=== PATIENT | male | born 1980 | race Caucasian/White ===

== ENCOUNTER 2022-02-10 09:25 | Outpatient (CLI) | payer OTHER, SELFPAY ==
--- NOTE | 2022-02-10 09:22 | DI.RAD_ITS ---
Exam(s) XR KNEE LT 3V AP,LAT,JOSE EXAM: XR KNEE LT 3V AP,LAT,JOSE CLINICAL HISTORY: LEFT KNEE PAIN. TECHNIQUE: 2D digital imaging was performed. Three views. COMPARISON: MR MR KNEE RIGHT WO CONTRAST from 06/10/2021 FINDINGS: BONES: No acute fracture is present. No bony destructive lesion is seen. JOINTS: The knee is normally aligned. No joint effusion is seen. Spurring at the articular aspect of the patella, greater inferiorly. SOFT TISSUE: Normal. IMPRESSION: Patellofemoral degenerative changes. DATA REPOSITORY: RADIATION DOSE DELIVERED:
== END 2022-02-10 09:26 | disposition home or self-care (01) ==
LOC: DIORS 09:26
PROVIDERS: PCP Family Medicine; Referring Provider Family Medicine; Visit Provider Student in an Organized Health Care Education/Training Program
DX: M25.562 Pain in left knee (principal); M25.862 Other specified joint disorders, left knee
CPT/HCPCS: 73562

== ENCOUNTER 2022-04-04 02:36 | Outpatient (CLI) | payer OTHER, SELFPAY ==
[2022-04-04 11:24] LABS: Source Nasal/Nares
[2022-04-04 19:41] LABS: COVID-19 PCR Negative (Negative)
== END 2022-04-04 02:37 | disposition home or self-care (01) ==
LOC: LBO 02:37
PROVIDERS: PCP Family Medicine; Visit Provider Student in an Organized Health Care Education/Training Program
DX: Z20.822 Contact with and (suspected) exposure to COVID-19 (principal); Z01.818 Encounter for other preprocedural examination
CPT/HCPCS: 87635

== ENCOUNTER 2022-04-05 11:18 | Day surgery (SDC) | payer OTHER, SELFPAY ==
[2022-04-05] VITALS (8 sets, daily range): BP systolic 89–115; BP diastolic 39–76; PULSE 52–72; RESP 11–17; TEMP 36.2–37; O2SAT 97–100; BMI 31.8
[2022-04-05] MEDS: Acetaminophen 500 MG TAB 1000 MG PO (11:38)
[2022-04-05] MEDS: Celecoxib 200 MG CAP 400 MG PO (11:38)
[2022-04-05] MEDS: Lactated Ringers 1,000 ML 80 ML IV (11:47)
--- NOTE | 2022-04-05 12:02 | W.ANESPRE ---
General Info Date of Service Date Performed: 04/05/22 Height: 6 ft 1 in Weight: 109.4 kg Body Mass Index (BMI): 31.8 Surgical Procedure: Operation Date: 04/05/22 15:25 Proposed Procedure Side Surgeon p Knee Diagnostic Arthroscopy Right Jarad Rollins MD Meds Allergies and Home Medications Allergies Allergy/AdvReac Type Severity Reaction Status Date / Time No Known Allergies Allergy Verified 04/05/22 11:37 Home Medication Medication Instructions Recorded Unknown [No Known Home Meds] 02/10/22 Current Visit Medications: Current Medications Generic Name Dose Route Start Last Admin Trade Name Freq PRN Reason Stop Dose Admin Acetaminophen 1,000 mg 04/05/22 06:00 04/05/22 11:38 Acetaminophen 500 Mg Tab PO 1,000 mg PREOP TAWNY Administration Celecoxib 400 mg 04/05/22 06:00 04/05/22 11:38 Celecoxib 200 Mg Cap PO 400 mg PREOP TAWNY Administration Ringer's Solution 1,000 mls @ 80 mls/hr 04/05/22 06:00 04/05/22 11:47 IV 05/04/22 23:59 80 mls/hr INFUSION TAWNY Administration Cefazolin Sodium/Dextrose 2 gm in 50 mls @ 100 mls/hr 04/05/22 06:00 Ancef Duplex IVPB 05/04/22 23:59 PREOP TAWNY IV Miscellaneous Supplies 1 each 04/05/22 06:00 Iv Access IV 05/04/22 23:59 DIRECTED TAWNY Sodium Chloride 0 ml 04/05/22 06:00 Normal Saline Flush 10 Ml Syr IV 05/04/22 23:59 PRN PRN Sodium Chloride 0 ml 04/05/22 06:00 Normal Saline 10 Ml Vial IJ 05/04/22 23:59 DIRECTED PRN Sterile Water 0 ml 04/05/22 06:00 Water,Injection,Sterile 10 Ml Vial IJ 05/04/22 23:59 DIRECTED PRN PFSH Active Problems Active Problems: Problem Status Onset Code Internal derangement of right knee M23.91 Surgical History Surgical History Hx of wisdom tooth extraction Tobacco Smoking/Tobacco Use Status: Never Alcohol Alcohol Intake: current Alcohol intake frequency: a few times a month Alcohol type: beer Substance Use Substance use: Never Substance use type: does not use Vital Signs and Lab Results Vital Signs Most Recent Vital Signs in EMR: Most Recent Vital Signs Temp Pulse Resp BP Pulse Ox 37.0 C 69 17 108/76 97 04/05/22 11:30 04/05/22 11:30 04/05/22 11:30 04/05/22 11:30 04/05/22 11:30 Lab Results Blood Type / Crossmatch: No Data to Display Complete Blood Count: No Data to Display Complete Metabolic Panel: No Data to Display Liver Function Panel: No Data to Display Coagulation Panel: No Data to Display Cardiac Panel: No Data to Display Arterial Blood Gas: No Data to Display Venous Blood Gas: No Data to Display Pancreas Panel: No Data to Display Thyroid Panel: No Data to Display Infectious Disease: Coronavirus (COVID-19)(PCR) Negative (Negative) 04/04/22 08:45 Coronavirus 2019 Source Nasal/Nares 04/04/22 08:45 Blood Cultures: No Data to Display Toxicology Panel: No Data to Display Anesthesia Assessment and Plan Anesthesia History Personal History: No History of Anesthesia Complications Family History: No Family History of Anesthesia Complications Exercise Tolerance Exercise Tolerance: Metabolic Equivalents>4 Pertinent Negatives Pertinent Negatives: No Symptoms of GERD, No Major Cardiovascular Symptoms or Complaints and No Major Pulmonary Symptoms or Complaints Cardiac & Pulmonary Exam Cardiac Exam: Normal S1/S2 Heart Sounds Pulmonary Exam: Clear Bilateral Breath Sounds Implantable Cardiac Device Does patient have a Pacemaker or an ICD?: No Airway Exam Known Difficult Airway: No Mallampati Class: 1 Mouth Opening: Normal (> 3cm) Thyromental Distance: Greater than 3 cm Neck Range of Motion: Full ROM Neck Circumference: Normal Teeth Condition: Normal Dentition ASA Classification ASA Score: ASA 1 Emergency Case?: No NPO Status NPO Status: NPO Clears >2 hours, Solids >8 hours Anesthesia Plan Resuscitation Status: Full Code Anesthesia Technique: General Anesthesia Airway Planned: LMA Monitors Used: Standard Monitors
--- NOTE | 2022-04-05 12:52 | W.PM.DSUDISC ---
Discharge Plan Disposition Patient Disposition: HOME Condition: Good Discharge Details Reason For Visit: Right knee internal derangement Attending Provider: Jarad Rollins Primary Care Provider: Dieudonne Wick Home Meds and New Rx's Prescriptions: New acetaminophen 500 mg tablet 500 mg PO Q6H PRN (Reason: pain) Qty: 60 2RF hydrocodone-acetaminophen 5-325 mg tablet 1 tab PO Q6H PRN (Reason: severe pain) Qty: 4 0RF Rx Instructions: Take one tablet up to every 6 hours as needed for severe postoperative pain ibuprofen 600 mg tablet 600 mg PO TID PRN (Reason: pain) Qty: 60 0RF Discharge Instructions Stand Alone Forms: [facility] Knee Arthroscopy Referrals: Jarad Rollins MD [ [facility] STAFF PHYSICIAN] - Equipment/Supplies: Partial Weight Bearing Crutches Activity:: Elevate Remove Dressings/Wound Care:: 72 hours Shower/Bathe:: 72 hours Diet:: As Tolerated Discharge Orders Discharge Orders: Discharge Order (Routine); Ordered 04/05/22 Ordered By: Antionette Gray DS: Diagnosis Discharge Diagnosis (1) Internal derangement of right knee: Status: Acute
[2022-04-05] MEDS: ceFAZolin 2 GM/50 ML BAG IVPB (13:19)
[2022-04-05] MEDS: Bupivacaine 0.5% Pres-Free 30 ML VIAL (13:42)
--- NOTE | 2022-04-05 14:56 | ROE_ITS ---
Date of service: 04/05/22 Time of Service: 14:00 Operative Note Operative Note DATE OF PROCEDURE: 04/05/22 PRE-OP DIAGNOSIS: Right Knee - lateral knee pain, internal derangement POST-OP DIAGNOSIS: other (Right knee medial meniscus tear, lateral meniscus tear, lateral osteophyte) PROCEDURE: Right knee arthroscopic partial medial and lateral meniscectomies along with ostectomy of lateral femoral osteophyte SURGEON: Jarad Rollins ANESTHESIA TYPE: General LMA/ETT Refer to Anesthesia Record ESTIMATED BLOOD LOSS: 5 PATHOLOGY: none sent TOURNIQUET TIME: 0 COMPLICATIONS: None Patient was transported to: PACU Patient's condition: stable Indications: I have seen Santy in clinic for knee pain. This is primarily lateral based knee pain with some baseline medial base pain. His lateral based pain was evaluated with MRI which was inconclusive. He did have an intra-articular injection which completely alleviated his pain for short period of time. Therefore, I recommended a diagnostic arthroscopy intervention is indicated. Nonoperative measures were exhausted but disability and pain persisted. I reviewed the risks of the procedure to include, but not limited to, bleeding, infection, pain, stiffness, damage to nerves or vessels, recurrence, blood clot. Despite these risks, the patient elected to proceed. Findings: A diagnostic arthroscopy was performed with the following findings: Suprapatellar Pouch: Mild inflammatory changes, no loose bodies Medial Compartment: Complex medial meniscal tear at the posterior horn intact meniscal root, there was a focal area of grade IV chondromalacia over the central?posterior portion of the medial femur, otherwise grade I chondromalacia, multiple loose bodies within the medial gutter Notch: ACL and PCL were intact Lateral Compartment: Complex tear of the posterior horn of the lateral meniscus, intact meniscal root, no significant chondromalacia or signs of arthritis, multiple loose bodies within the lateral gutter, prominent osteophyte from the lateral femur projecting lateral of the lateral femoral cortex Patellofemoral Compartment: 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 The consent was reviewed with the patient and signed. The history and physical was updated. All questions were answered. Santy was taken back to the operating room. The patient was placed into the supine position on the operating room table. A nonsterile tourniquet was placed high onto the leg but not used. All bony prominences were well padded. Prophylactic antibiotics in the form of cefazolin were administered. The right leg was then prepped with Chloraprep and draped in a standard fashion with stockinette and extremity drape. A timeout to confirm correct identity, side and site, procedure, allergies, anesthesia, and medical concerns was performed. The leg was placed into a pneumatic leg henson, [id number]. A standard lateral portal was made at the lateral border of the patella tendon in line with the inferior pole of the patella, soft spot. The skin and deep tissue was incised sharply and the blunt trochar was inserted atraumatically. A diagnostic arthroscopy was performed and the findings are listed above. The suprapatellar pouch had mild inflammatory change. The patellofemoral articulation showed grade I chondromalacia of the patella and grade IV chondromalacia of the central trochlea. There also was good tracking. The lateral gutter had several car tilage loose bodies and the medial gutter had several cartilaginous loose bodies. There also was an apparent prominent osteophyte from the lateral femur noticed over the lateral posterior lateral aspect of the gutter. The knee was brought into some valgus stress in extension to open the medial compartment. A medial portal was made, localized by a spinal needle. The portal was created with an #11 blade through skin and capsule under direct visualization avoiding any meniscal injury. A probe was then inserted into the medial compartment. The medial compartment was fully inspected. The chondral surface of the tibia showed a focal area of grade IV chondromalacia of the medial femur and otherwise grade I chondromalacia throughout. The medial meniscus had a complex meniscal tear in the setting of a previous meniscal tear. The previous tear seem to be horizontal cleavage type tear as there was one leaflet still present but there was a complex tear within the posterior horn. After evaluation, the meniscus was debrided down to a stable base using a series of biters and arthroscopic shiloh. It was probed afterwards to confirm that the tear had been removed and the meniscus was stable. The notch was then inspected which showed an intact ACL and an intact PCL. The leg was then brought into a figure of 4 position. The lateral compartment was fully inspected with the arthroscope and a probe. The chondral surface of the lateral femur showed no significant chondromalacia. The chondral surface of the lateral tibia showed no significant chondromalacia. The lateral meniscus had a small, complex tear of the posterior horn. After evaluation, the meniscus was debrided down to a stable base using a series of biters and arthroscopic shiloh. It was probed afterwards to confirm that the tear had been removed and the meniscus was stable. I then created a superolateral portal to evaluate the lateral border of the femur. This osteophyte was quite prominent. While it was not loose it was projecting lateral to the lateral cortex of the femur. He was inflamed and somewhat soft. Using a shaver and a curette I remove this bone spur performing ostectomy of the lateral femur such that there was no prominence to the lateral femur at this level. The arthroscope was brought back into the suprapatellar pouch and the leg was in full extension. The knee was thoroughly irrigated with the arthroscopic fluid on high flow and pressure. Inflow was stopped and excess fluid was removed. The wounds were closed with 4-0 Nylon. They were dressed with Xeroform, 4x4 gauze, ABD pad, Kerlix and an RAVI wrap. A cryo-cuff was applied. The patient tolerated the procedure well and was returned to the Same Day Surgery area in a stable condition suffering no known complication.
--- NOTE | 2022-04-05 15:15 | W.ANESPOSTOP ---
Postoperative Evaluation Date, Time and Location Date Performed: 04/05/22 Time Performed: 14:15 Patient Location: PACU Vital Signs Most Recent Imported Vital Signs: Most Recent Vital Signs Temp Pulse Resp BP Pulse Ox 36.2 C L 62 13 104/65 98 04/05/22 15:05 04/05/22 15:05 04/05/22 15:05 04/05/22 15:05 04/05/22 15:05 Pain Score Most Recent Pain Score: Most Recent Pain Score Pain Level 0 04/05/22 15:05 Assessment Mental Status: Awake (Alert & Oriented to Patient Baseline) Airway and Respiratory Function: Patent airway with normal (patient baseline) respiratory exam Cardiovascular Function: Hemodynamically Stable Hydration Status: Adequately Hydrated Nausea & Vomiting: No Nausea or Vomiting Pain: Pt. Denies Any Pain Peripheral Nerve Block: Patient did not receive a nerve block
== END 2022-04-05 16:30 | disposition home or self-care (01) ==
PROVIDERS: PCP Family Medicine; Visit Provider Student in an Organized Health Care Education/Training Program
PROC: (CPT 29870; principal; 2022-04-05 15:15)
DX: M23.251 Derangement of posterior horn of lateral meniscus due to old tear or injury, right knee (principal); M23.231 Derangement of other medial meniscus due to old tear or injury, right knee; M94.261 Chondromalacia, right knee; M25.761 Osteophyte, right knee
CPT/HCPCS: 29880; J0690; J1100; J1885; J2250; J2405; J2704

== ENCOUNTER → 2022-09-19 01:34 | Outpatient (CLI) | payer OTHER, SELFPAY ==
--- NOTE | 2022-09-19 06:30 | DI.MRI_ITS ---
Exam(s) MR LOWER JOINT LT WO EXAM: MR LOWER JOINT LT WO CLINICAL HISTORY: internal derangement lt knee, pain, m23.92 TECHNIQUE: Multiplanar multisequence MRI of the knee was performed. COMPARISON: MR MR KNEE RIGHT WO CONTRAST from 06/10/2021 CR XR KNEE LT 3V AP,LAT,JOSE from 02/10/2022 FINDINGS: EFFUSION: There is no evidence of joint effusion or Melton cyst in the popliteal fossa. MARROW:There is no evidence of fracture, bone contusion, nor osteochondral defects in the femoral con dyles and tibial plateau.. There are no significant osseous lesions. PATELLOFEMORAL COMPARTMENT: The quadriceps tendon is intact. However, there is abnormal signal and i ntrasubstance tearing of the most superior aspect of the patellar ligament with the internal tear sig nal measuring 1.2 cm craniocaudal by 7 millimeters wide by 5 millimeters AP. There is also abnormal signal in the adjacent inferior pole of the patella but without distinct fracture. There is mild sub cutaneous swelling anterior to the upper aspect of the patellar ligament. In addition, there is significant chondromalacia patella.There is irregular thinning of the retropate llar cartilage, particularly of the mid-lateral aspect and there is 8 in the lumbar a laboy of multipl e small degenerative subarticular cysts in the posterior mid patella with some surrounding intraosseo us edema. CRUCIATE LIGAMENTS: The anterior cruciate ligament is intact.The posterior cruciate ligament is intac t. MEDIAL COMPARTMENT/MEDIAL MENISCUS: There is some signal abnormality in the posterior horn of the med ial meniscus in the lateral 3rd. On the coronal images this is seen to reach the inferior articular surface and therefore constitutes a small tear at this level. There is no bucket-handle configuratio n nor meniscocapsular separation. The meniscal root is intact. The anterior horn of the medial meni scus appears unremarkable.. There is some signal abnormality in the medial articular cartilage over the medial condyle main weigh t-bearing surface. There is no osteochondral defect at this level. No marginal osteophytes. MEDIAL COLLATERAL LIGAMENT: Appears intact. However, there is a vertically orientated multi-septated cystic structure just lateral to the upper aspect of the MCL and extending cephalad behind the vastu s medialis muscle. This measures approximately 4.5 cm craniocaudal by 1 cm wide by 2.8 cm AP. It do es not appear to be coming off the meniscal level and therefore doubtful representing a degenerative meniscal cyst. There is no abnormal signal in the adjacent medial femoral condyle. This finding is related to the upper MCL-medial retinaculum level. LATERAL COMPARTMENT/LATERAL MENISCUS: There is no evidence of lateral meniscal tear.There is a signif icant focal area of signal abnormality in the cartilage over the main weight-bearing surface of the l ateral femoral condyle. There is no obvious osteochondral defect level. No bone edema in the overly ing lateral condyle. ILIOTIBIAL BAND: Intact LATERAL COLLATERAL LIGAMENT COMPLEX: The fibular collateral ligament is intact. The biceps femoris t endon is intact.Popliteus muscle and tendon are intact. IMPRESSION: There are multilevel findings: 1. There is an intrasubstance tear in the superior aspect of the patellar ligament as described above . There is also bone edema in the adjacent inferior pole of the patella. The mid-lower half of the patellar ligament appear unremarkable. The quadriceps tendon is unremarkable. 2. Chondromalacia patella as described above, most prominent over the mid and lateral aspect of this compartment. Also subjacent small degenerative cysts in the posterior patella with mild surrounding bone edema in the posterior patella at this level. 3. There is a small tear in the outer 3rd of the posterior horn of the medial meniscus. There is no bucket-handle configuration, meniscal extrusion, flipped fragment, nor meniscocapsular separation. A nterior horn of the medial meniscus is intact as are both point of the lateral meniscus. 4. Some cartilage abnormality over both femoral condyles main weight-bearing surfaces as described ab ove. No osteochondral defects. No loose intra-articular bodies. 5. There is a prominent vertically orientated 4.5 cm multi cystic structure lateral to and above the upper aspect of the medial femoral condyle. Lower aspect-possible origin of this is not related to the ipsilateral meniscal tear. It is therefore doubtful that this represents a degenerative meniscal cyst. This para-articular multi septated ganglion-type appearing finding is para-articular. There is no abnormal intraosseous signal in the adjacent upper outer aspect the medial femoral condyle. 6. Cruciate ligaments are intact. DATA REPOSITORY:
== END ==
PROVIDERS: PCP Family Medicine; Visit Provider Student in an Organized Health Care Education/Training Program
DX: M22.42 Chondromalacia patellae, left knee (principal); S83.242A Other tear of medial meniscus, current injury, left knee, initial encounter; X58.XXXA Exposure to other specified factors, initial encounter
CPT/HCPCS: 73721

== ENCOUNTER 2022-09-21 09:12 | Outpatient (CLI) | payer OTHER, SELFPAY ==
--- NOTE | 2022-09-21 06:00 | DI.RAD_ITS ---
Exam(s) XR PAIN CLINIC FLUORO JOINT IN EXAM: XR PAIN CLINIC FLUORO JOINT IN CLINICAL HISTORY: DX: right knee osteoarthritis TECHNIQUE: 2D and realtime digital imaging was performed. CONTRAST MATERIAL: Refer to procedure report. COMPARISON: No exams were available for comparison FINDINGS: Fluoroscopy was provided for Dr. Hernandez during the performance of a right genicular block. Please ref er to the procedure report for complete details. Ka,r=2.81 mGy IMPRESSION:
[2022-09-21 09:18] VITALS: BP 112/71; PULSE 56; RESP 20; TEMP 36.9; O2SAT 97
--- NOTE | 2022-09-21 09:48 | PDOC.PAIN_ITS ---
Date of service: 09/21/22 Time of Service: 09:48 Pain Clinic Procedure Note Procedure Note Procedure Note: RIGHT GENICULAR NERVE BLOCK Date of Service: September 21, 2022 Patient: Santy Reza Provider: Harman Hernandez DO, MPH Pre-operative diagnosis: Knee pain Post-operative diagnosis: Same Pre-procedure pain: VAS= 5/10 COMMENTS: Allergy to surgical scrub. Thus we will use Alcohol instead of Chloroprep Santy Reza has been referred to the [facility] for RIGHT genicular nerve block. Santy was interviewed and the medical record reviewed. There were no medical, pharmacologic, radiographic or other structural contraindications to attempting fluoroscopically guided RIGHT genicular nerve block. Risks and potential side effects as well as potential benefit of the procedure were reviewed with Santy , and HIS voiced concerns were addressed. After I believed that the patient was completely informed, the printed consent form was signed. Standard time-out procedure was performed. Santy was placed in the supine position on the fluoroscopy table and automated blood pressure cuff and pulse oximeter applied. The skin entry points for approaching RIGHT superolateral genicular nerve, the superomedial genicular nerve, the terminal branch of the nerve vastus intermedius and the inferomedial genicular was identified under the most advantageous fluoroscopic view and marked. Following thorough alcohol preparation of the skin and draping, 1% lidocaine infiltration of the skin entry point and subcutaneous tissues was accomplished using a 1.5 25G needle. Next, the 3.5 25G spinal needle was advanced to os at the location of the specific nerve root using fluoroscopic guidance. Next, 1 ml of 1% Lidocaine was injected at each site. The needles were removed without difficulty. Santy's vital signs were stable throughout the procedure and were as recorded in the docflowsheet by the nursing staff. If given, dosages of intravenous drugs for anxiolysis and analgesia were documented in MAR. Follow up plans and appointments were discussed with the Santy . Post procedure instruction was given as documented in nursing documentation and having met discharge criteria, Santy was discharged from the [facility]. COMMENTS: No apparent complications. Post-procedure pain: VAS = 0-1/10. The patient will keep track of her RIGHT knee pain over the next four hours. If Tra adalid has sufficient pain relief, Santy will be a candidate for radiofrequency ablation at the same nerves. Chano WJ1, Fabio SJ, Angelo JG, Marisela JG, Luciano SADLER, Park PH, Colbert JW. Radiofrequency treatment relieves chronic knee osteoarthritis pain: a double-blind randomized controlled trial. Pain. 2011 Jan;152(3):481-7. doi: 10.1016/j.pain.2010.09.029. Polina S1, Beny ON2, Lee Y3, ?zl?lerjess P2, Karlos U1, [place] ?m?rl? I. Which one is more effective for the clinical treatment of chronic pain in knee osteoarthritis: radiofrequency neurotomy of the genicular nerves or intra- articular injection? Int J Rheum Dis. 2016 Jun 12. F/U with our office by phone to let us know how he did between 1-4 hours afte the procedure. Harman Hernandez DO, MPH [facility]
[2022-09-21] MEDS: Bupivacaine 0.5% Pres-Free 10 ML VIAL IJ (09:52)
[2022-09-21] MEDS: Omnipaque 240 MG/ML 50 ML BTL IJ (09:53)
[2022-09-21 09:54] VITALS: PULSE 64; O2SAT 98
== END 2022-09-21 09:13 | disposition home or self-care (01) ==
LOC: PC 09:12
PROVIDERS: PCP Family Medicine; Visit Provider Preventive Medicine Occupational Medicine
DX: M25.561 Pain in right knee (principal)
CPT/HCPCS: 64454; 77002; Q9967

== ENCOUNTER 2022-11-02 12:11 | Outpatient (CLI) | payer OTHER, SELFPAY ==
--- NOTE | 2022-11-02 06:00 | DI.RAD_ITS ---
Exam(s) XR PAIN CLINIC FLUORO JOINT IN EXAM: XR PAIN CLINIC FLUORO JOINT IN CLINICAL HISTORY: Dx: Knee pain TECHNIQUE: 2D and realtime digital imaging was performed. Radiologist not present. CONTRAST MATERIAL: None. COMPARISON: No exams were available for comparison FINDINGS: Fluoroscopy was provided for pain management therapy. Please refer to procedure report or details. Cumulative dose: Ka,r=not given mGy IMPRESSION: RADIATION DOSE DELIVERED:
[2022-11-02 12:28] VITALS: BP 116/69; PULSE 59; RESP 20; TEMP 36.8; O2SAT 98
[2022-11-02] MEDS: fentaNYL 100 MCG/2 ML VIAL IVP (13:04)
[2022-11-02] MEDS: Midazolam 2 MG/2 ML VIAL IVP (13:04)
[2022-11-02] MEDS: Lactated Ringers 500 ML 80 ML IV (13:05)
[2022-11-02 13:37] VITALS: BP 125/74; PULSE 61; RESP 18; O2SAT 97
--- NOTE | 2022-11-02 13:40 | PDOC.PAIN_ITS ---
Date of service: 11/02/22 Time of Service: 13:44 Pain Clinic Procedure Note Procedure Note Procedure Note: {RIGHT / LEFT:14978} GENICULAR NERVE RADIOFREQUENCY ABLATION WITH THE AVANOS MACHINE Date of Service: November 02, 2022 Patient: Santy Reza Provider: Harman Hernandez DO, MPH Pre-operative diagnosis: Right knee pain Post-operative diagnosis: Pre-procedure pain VAS to the right knee = 4/10 COMMENTS: Previous Genicular nerve block to the RIGHT knee on 09/21/22. Santy Reza has been referred to the [facility] for RIGHT genicular nerve radiofrequency ablation. Santy was interviewed and the medical record reviewed. There were no medical, pharmacologic, radiographic or other structural contraindications to attempting fluoroscopically guided RIGHT genicular nerve radiofrequency ablation. Risks and potential side effects as well as potential benefit of the procedure were reviewed with Santy Reza , and HIS voiced concerns were addressed. After I believed that the patient was completely informed, the printed consent form was signed. Standard time-out procedure was performed. Santy was placed in the supine position on the fluoroscopy table and automated blood pressure cuff and pulse oximeter applied. The skin entry points for approaching RIGHT superolateral genicular nerve, the superomedial genicular nerve and the inferomedial genicular was identified under the most advantageous fluoroscopic view and marked. Following thorough Chlorhexadine preparation of the skin and draping, 1% lidocaine infiltration of the skin entry point and subcutaneous tissues was accomplished using a 1.5 25G needle. Next, the 10 cm 18G RF Cannula with a 10 mm active tip was advanced to os at the location of the specific nerve roots (3) using fluoroscopic guidance. Next, sensory and motor testing was performed and no abnormal findings were found. Next, 1 cc of 2% Lidocaine was injected at each site. The lesion was then created with 80 degrees C for 90 seconds. Each needle was advance 1 cm and the lesion was completed again. Each cannula was advanced until the tip reached the posterior aspect of the bone shaft. 1/4 cc of Depomedrol (40 mg/cc) was then injected at each site followed by 1 cc of 0.5% Bupivacaine as the needle was withdrawn. The needles were removed without difficulty. Santy's vital signs were stable throughout the procedure and were as recorded in the docflowsheet by the nursing staff. If given, dosages of intravenous drugs for anxiolysis and analgesia were documented in JAN. Follow up plans and appointments were discussed with the Santy Reza . Post procedure instruction was given as documented in nursing documentation and having met discharge criteria, Santy was discharged from the [facility]. COMMENTS: No complications. Post-procedure pain VAS to the right knee was 0/10. If this procedure is found to be effective for at least 6 months, it can be repeated. Madden WJ1, Fabio SJ, Angelo JG, Marisela JG, Luciano SADLER, Kate PH, Filemon JW. Radiofrequency treatment relieves chronic knee osteoarthritis pain: a double-blind randomized controlled trial. Pain. 2011 Jan;152(3):481-7. doi: 10.1016/j.pain.2010.09.029. Polina S1, Beny ON2, Lee Y3, ?zl?bethel P2, Karlos U1, [place] ?m?rl? I. Which one is more effective for the clinical treatment of chronic pain in knee osteoarthritis: radiofrequency neurotomy of the genicular nerves or intra- articular injection? Int J Rheum Dis. 2016 Jun 12. F/U with our office as needed. Harman Hernandez DO, MPH [facility]-Pain Management [facility]
[2022-11-02] MEDS: methylPREDNISolone ACETATE 40 MG/ML VIAL IJ (13:57)
[2022-11-02] MEDS: Bupivacaine 0.5% Pres-Free 10 ML VIAL IJ (13:58)
[2022-11-02] MEDS: Lidocaine 2% Pres-Free 5 ML VIAL IJ (13:58)
== END 2022-11-02 12:12 | disposition home or self-care (01) ==
LOC: PC 12:12
PROVIDERS: PCP Family Medicine; Visit Provider Preventive Medicine Occupational Medicine
DX: M25.561 Pain in right knee (principal)
CPT/HCPCS: 64624; 77002; J1030; J2250; J3010

== ENCOUNTER 2023-02-20 09:19 | Outpatient (CLI) | payer OTHER, SELFPAY ==
--- NOTE | 2023-02-20 08:15 | DI.RAD_ITS ---
Exam(s) XR KNEE RT 3V AP,LAT,JOSE EXAM: XR KNEE RT 3V AP,LAT,JOSE CLINICAL HISTORY: right knee pain. TECHNIQUE: 2D digital imaging was performed of the right knee. Three views obtained. AP, lateral an d PA tunnel views were obtained. COMPARISON: CR XR KNEE 4 VIEW RIGHT from 06/02/2021 FINDINGS: BONES: No acute fracture is present. No bony destructive lesion is seen. JOINTS: There is mild narrowing of the medial femoral tibial joint. There is moderate narrowing of t he patellofemoral joint. Periarticular spurring is seen in the medial femoral tibial and patellofemo ral joint. There is a small joint effusion. SOFT TISSUE: Normal. IMPRESSION: Osteoarthritis of the right knee. DATA REPOSITORY: RADIATION DOSE DELIVERED:
== END 2023-02-20 09:20 | disposition home or self-care (01) ==
LOC: DIORS 09:19
PROVIDERS: PCP Family Medicine; Referring Provider Family Medicine; Visit Provider Physician Assistant
DX: M25.561 Pain in right knee; M23.8X1 Other internal derangements of right knee; M17.11 Unilateral primary osteoarthritis, right knee
CPT/HCPCS: 73562

== ENCOUNTER 2023-03-03 00:19 | Outpatient (CLI) | payer OTHER, SELFPAY ==
--- OUTSIDE RECORDS SUMMARY | 2023-03-03 00:22 | XMS_ITS ---
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 [address] [id number] March, Encounter for pre-employment examination Z02.1 [facility] [address] [place] [id number] Jan, Encounter for screening laboratory testing for COVID-19 virus Z20.828 [facility] [address] [place] [id number] Jan, Encounter for screening laboratory testing for COVID-19 virus Z20.828 [facility] Occupational Health Department [address] [place] [id number] Apr, Encounter for Department of Transportation (DOT) examination for driving license renewal Z02.4 [facility] Occupational Health Department [address] [place] [id number] Oct, Encounter for audiology evaluation Z01.10 IMMUNIZATIONS No Known Immunizations SOCIAL HISTORY Never Assessed REASON FOR REFERRAL FUNCTIONAL STATUS PLAN OF CARE VITAL SIGNS Height 6 ft 1 in in 2022-02-28 Weight 250 lbs 2022-02-28 Temperature 97.8 degrees Fahrenheit Heart Rate 62 /min 2022-02-28 Oximetry 100 2022-02-28 Respiratory Rate 16 /min 2022-02-28 BMI 32.98 kg/m2 2022-02-28 Blood pressure systolic 135 mm Hg Blood pressure diastolic 77 mm Hg 2022-02 MEDICATIONS Unknown Medications PROCEDURES Procedure Date Ordered Result Body Site OCD DOT Physical April 29, 2020 OCD Respiratory Fit Testing April 29, 2020 OCD Audio Hearing Test w/review April 29, 2020 OCD Audio Hearing Test w/review April 05, 2021 OCD Audio Hearing Test w/review Oct 21, 2019 OCD DOT Physical February 28, 2022 DANIEL -PHONE E/M PHYS/QHP 5-10 MIN February 03, 2021 DANIEL -PHONE E/M PHYS/QHP 5-10 MIN February 01, 2021 RESULTS Name Result Date Reference Range COVID 19 SCREENING PCR ([id number]) 2021-01-12 5 SARS-CoV-2, HUI Not Detected Not Detected COVID 19 (POS) BinaxNow Ag Card 2021-01-12 2 SARS-CoV-2 negative REASON FOR VISIT OCC dot, fit test, fce, OCC dot , OCC audiogram/ OSHA Questionnaire review , OCC audiology, DANIEL covid , COVID 19 Screening (SEND OUT), DANIEL covid test, OCC dot audio fit test, OCC audio Insurance Providers Health Insurance Type Health Plan Insurance Address Health Plan Insurance Phone Health Plan Insurance Name Health Plan Coverage Dates Member ID Patient Relationship to Subscriber Patient Address Patient Phone Patient Name Patient Date of Subscriber ID Subscriber Name Subscriber Date of Group No [employer] P[employer] [address] [facility] [address] [employer] PPO self Santy shultz [id number] OCD - [employer] [facility] [address] [facility] [place] [address] OCD - [employer] [facility] self Santy shultz [id number]
--- NOTE | 2023-03-03 07:30 | DI.MRI_ITS ---
Exam(s) MR LOWER JOINT RT WO EXAM: MR LOWER JOINT RT WO CLINICAL HISTORY: PAIN,INTERNAL DERANGEMENT RT KNEE,M23.91 TECHNIQUE: Multiplanar multisequence MRI of the knee was performed. COMPARISON: MR MR LOWER JOINT LT WO from 09/19/2022 FINDINGS: EFFUSION: There is a prominent knee joint effusion. MARROW:There is multilevel subarticular bone edema. This is most prominent in the outer aspect of th e lateral femoral condyle.. Also bone edema evident in the medial tibial plateau both posterior late rally and as well as anterior to a subarticular degenerative cysts in the tibial plateau which itself measures 1.7 cm deep by 1.1 cm wide by 1.1 cm AP. There are no significant osseous lesions. PATELLOFEMORAL COMPARTMENT: Quadriceps tendon appears intact. Mild increased signal is seen in the u pper patellar ligament but no high-grade tear. There is significant thinning of the retropatellar cartilage, more so superiorly and more prominent o constanza the lateral facet where there is also multilevel mild subarticular edema in the posterior patella . There is also mild increase bone marrow signal in the medial aspect of the patella and there is so me increased signal in the medial patellar retinaculum at its junction with the medial aspect of the patella. These findings may indicate recent lateral patellar dislocation.. Are degenerative subarticular cysts in the anterior aspect of the lateral femoral condyle and intraos seous bone edema extending in origins from this level. CRUCIATE LIGAMENTS: The anterior cruciate ligament is intact.The posterior cruciate ligament is intac t. MEDIAL COMPARTMENT/MEDIAL MENISCUS: There is tearing of the posterior horn of the medial meniscus whi ch is predominantly inferior and oblique. The meniscal root appears intact. There is mild meniscal extrusion with a small meniscal fragment off the torn outer aspect seen slightly below the joint surf mike level at the gutter. There is mild meniscocapsular separation. The anterior horn appears intact . There is prominent cartilage loss over the main weight-bearing surface of the medial condyle. There is multifocal full-thickness cartilage loss. There are marginal osteophytes off both the inner and o uter aspects of the medial condyle as well as the outer aspect of the medial tibial plateau. MEDIAL COLLATERAL LIGAMENT: Some sprain signal but no high-grade tear of this structure LATERAL COMPARTMENT/LATERAL MENISCUS: There is no evidence of lateral meniscal tear.There is mild car tilage thinning over the lateral condyle. No osteochondral defects. No marginal osteophytes evident . ILIOTIBIAL BAND: Intact LATERAL COLLATERAL LIGAMENT COMPLEX: The fibular collateral ligament is intact. The biceps femoris t endon is intact.Popliteus muscle and tendon are intact. IMPRESSION: 1. Complex tear posterior horn of the medial meniscus as described above. No bucket-handle configura tion nor flipped meniscal fragments. Number less, appearance of the tear has progressed when compare d to prior MRI scan of 09/19/2022 2. Significant degenerative cartilage changes over the main weight-bearing surface of the medial femo ral condyle as well as marginal osteophytes off inner and outer aspects of the medial condyle. 3. No obvious tears of the lateral meniscus but there is significant cartilage loss over the anterior aspect the lateral condyle at the level of the patellofemoral compartment where there is significant corresponding cartilage loss/chondromalacia of the retropatellar cartilage, slightly more so lateral ly than medially. 4. Also focal bone edema in the most medial aspect of the patella and medial retinaculum attachment s ite and correlation with any history of prior lateral patellar dislocation is recommended. 5. Cruciate ligaments are intact. 6. Mild sprain signal related to the medial collateral ligament but no high-grade tear. The 3 compo nents of the lateral collateral ligament complex are intact. 7. Moderate-large joint effusion. Addition, there is some medially located fluid posteriorly which is either eccentric Melton's cyst or have more so the appearance of tenosynovitis of the semimembranos us tendon. Other findings as above. DATA REPOSITORY:
== END 2023-03-03 00:39 ==
LOC: DI 00:20
PROVIDERS: PCP Family Medicine; Visit Provider Student in an Organized Health Care Education/Training Program
DX: M23.91 Unspecified internal derangement of right knee (principal)
CPT/HCPCS: 73721